=== PATIENT | male | born 1945 | race Caucasian/White ===

== ENCOUNTER 2016-05-22 12:22 | Inpatient (IN) | payer MEDICARE ==
[~2016-05-22] VITALS: Ht 175.3 cm; Wt 70.6 kg
[2016-05-22 12:28] VITALS: BP 134/64; PULSE 78; RESP 18; TEMP 97.7; O2SAT 95
[2016-05-22 12:32] VITALS: BP 149/71; PULSE 72; RESP 18; TEMP 98.4; O2SAT 96
[2016-05-22] MEDS ORDERED: ONDANSETRON HCL 4 MG/2 ML VIAL ONE (12:34)
[2016-05-22 12:38] VITALS: RESP 18; O2SAT 96
[2016-05-22] MEDS ORDERED: ONDANSETRON HCL 4 MG/2 ML VIAL IVP ONE (12:45)
[2016-05-22] MEDS ORDERED: MECLIZINE HCL 25 MG TAB PO ONE (12:45)
[2016-05-22 12:51] LABS: AUTOMATED NEUTROPHIL # 3.4 TH/MM3 (1.8-7.7); BASOPHIL # 0.1 TH/MM3 (0-0.2); BASOPHIL % 0.7 % (0.0-2.0); EOSINOPHIL # 0.1 TH/MM3 (0-0.4); EOSINOPHIL % 1.2 % (0.0-4.0); HEMATOCRIT 38.3 % (39.0-51.0); HEMO FLAGS DIFF FINAL; LYMPH % 39.8 % (9.0-44.0); LYMPHOCYTE # 2.9 TH/MM3 (1.0-4.8); MEAN CELL VOLUME 89.9 FL (80.0-100.0); MEAN CORPUSCULAR HEMOGLOBIN 30.7 PG (27.0-34.0); MEAN CORPUSCULAR HGB CONC 34.2 % (32.0-36.0); MONO % 12.4 % (0.0-8.0); NEUT % 45.9 % (16.0-70.0); PLATELET COUNT 167 TH/MM3 (150-450); RED BLOOD COUNT 4.26 MIL/MM3 (4.50-5.90); RED CELL DISTRIBUTION WIDTH 13.5 % (11.6-17.2); WHITE BLOOD COUNT 7.3 TH/MM3 (4.0-11.0)
--- NOTE | 2016-05-22 12:54 | PD ---
HPI Chief Complaint: Dizziness Time Seen by Provider: 12:47 Travel History International Travel<30 days: No Contact w/Intl Traveler<30days: No Traveled to known affect area: No History of Present Illness HPI Patient is a 70-year-old male with a history of atrial fibrillation on Xarelto and also has a pacemaker presenting with dizziness and nausea for 1 hour. He states it started abruptly. It is worse with turning his head to the left and right. He has associated nausea and dry heaving without vomiting. He states he feels things are spinning and he feels unsteady. He denies any focal neurological deficits, paresthesias, bowel or bladder dysfunction, seizure or loss of consciousness. He denies any chest pain, abdominal pain or shortness of breath. No diarrhea, constipation or urinary complaints. No history of CHF or CAD. He denies any head injury. Denies any fever, ENT/URI symptoms. His helps provide history as he is frequently vomiting. She states she's been with him the entire time symptoms have been present and she agrees, no seizure activity or loss of consciousness. No history of vertigo or CVA. PFSH Past Medical History Atrial Fibrillation: Yes ?: Not Past Surgical History Pacemaker: Yes (medtronic ) Social History Alcohol Use: No Tobacco Use: No Substance Use: No Allergies-Medications (Allergen,Severity, Reaction): Coded Allergies: Aspirin (Verified Allergy, Unknown, 05/22/16) MRI PRECAUTION (Verified Adverse Reaction, Severe, NON MRI COMPATIBLE MRI , 05/22/16) ADAPTA SR PACEMAKER MODEL 3 ADSR01/SERIAL # [id number]. NOT SCANNABLE PER WHIT AT [employer] 05/22/16 JLA Review of Systems General / Constitutional: No: Fever, Chills Eyes: No: Blurred Vision, Visual changes HENT: Positive: Vertigo, No: Headaches, Lightheadedness, Sore Throat, Congestion, Neck Pain, Earache Cardiovascular: No: Chest Pain or Discomfort, Palpitations, Tachycardia, Syncope, Edema Respiratory: No: Cough, Shortness of Breath Gastrointestinal: Positive: Nausea, Vomiting, No: Diarrhea, Abdominal Pain, Constipation Genitourinary: No: Dysuria Musculoskeletal: No: Pain Neurologic: Positive: Dizziness (positional), Coordination Problem, No: Weakness, Syncope, Focal Abnormalities, Tremor, Ataxia, Headache, Change in Mentation, Slurred Speech, Paresthesia, Incontinence, Seizures, Sensory Disturbance Physical Exam Exam Limitations: Clinical Condition (dizziness, nausea and vomiting) Narrative GENERAL: Well-developed and well-nourished adult male in mild distress, frequent dry heaves. SKIN: Warm and dry. Good turgor without tenting. HEAD: Normocephalic and atraumatic. EYES: PERRL bilaterally, 5mm. EOMI bilaterally with horizontal nystagmus to the left, worse with movement of the eyes to the left but not the right. Head impulse test and test of skew negative. No injection or icterus present. No proptosis. Lids without edema or erythema. ENT: Bilateral ear canals are non-edematous/non-erythematous without otorrhea. Bilateral TMs have intact landmarks and without distortion, perforation, air- fluid level or erythema. Buccal mucosa pink and moist. Oropharynx free of erythema, tonsillar hypertrophy, masses, swelling, asymmetry and exudates. Uvula midline and airway patent. NECK: Supple, no meningeal signs. Trachea midline, no JVD. No cervical or facial lymphadenopathy. CARDIOVASCULAR: Regular rate and rhythm without murmurs, rubs, clicks or gallops. Radial and posterior tibial pulses 2+ bilaterally. No pedal edema. Negative bilateral Homans sign. RESPIRATORY: Clear to auscultation bilaterally with symmetrical rise and fall, no distress or use of accessory muscles. GASTROINTESTINAL: Non-tender, non-distended. Normal bowel sounds all 4 quadrants. No masses or organomegaly present. MUSCULOSKELETAL: Patient freely moving all four extremities spontaneously. Extremities without clubbing, cyanosis, or edema. No obvious deformities. NEUROLOGIC: CN II-XII grossly intact. Awake and alert and oriented. Mild ataxia with finger to finger touching. Negative pronator drift. No dysdiadochokinesis. Strength 5/5 bilateral shoulder flexion, shoulder extension , shoulder abduction, shoulder adduction, elbow flexion, elbow extension. Sensation intact and strength 5/5 over radial, median, and ulnar nerve distributions bilaterally.Sensation intact L2-S2 bilaterally. Strength 5/5 in hip flexion, hip extension, knee flexion, knee extension, plantar flexion, dorsiflexion bilaterally. Bilateral biceps and patellar patellar DTRs 2+. Normal speech. PSYCHIATRIC: Appropriate mood and affect; insight and judgment normal. Data Data Last Documented VS Vital Signs Date Time Temp Pulse Resp B/P Pulse Ox O2 Delivery O2 Flow Rate FiO2 05/22/16 12:38 18 96 Room Air 05/22/16 12:38 72 05/22/16 12:32 98.4 149/71 Orders Ondansetron Inj (Zofran Inj) (05/22/16 12:34) Electrocardiogram (05/22/16 12:34) Complete Blood Count With Diff (05/22/16 12:34) Comprehensive Metabolic Panel (05/22/16 12:34) Magnesium (Mg) (05/22/16 12:34) B-Type Natriuretic Peptide (05/22/16 12:34) Ckmb (Isoenzyme) Profile (05/22/16 12:34) Troponin I (05/22/16 12:34) Act Partial Throm Time (Ptt) (05/22/16 12:34) Prothrombin Time / Inr (Pt) (05/22/16 12:34) Urinalysis - C+S If Indicated (05/22/16 12:34) Chest, Single Ap (05/22/16 12:34) Ct Brain W/O Iv Contrast(Rout) (05/22/16 12:34) Blood Glucose (05/22/16 12:34) Ecg Monitoring (05/22/16 12:34) Iv Access Insert/Monitor (05/22/16 12:34) Oximetry (05/22/16 12:34) Meclizine (Antivert) (05/22/16 12:45) Ondansetron Inj (Zofran Inj) (05/22/16 12:45) Orthostatic Vital Signs (05/22/16 12:34) Lipase (05/22/16 12:43) Lorazepam Inj (Ativan Inj) (05/22/16 13:00) Sodium Chlorid 0.9% 500 Ml Inj (Ns 500 M (05/22/16 13:00) CKMB (05/22/16 12:41) CKMB% (05/22/16 12:41) Consult Neurology (05/22/16 ) (Hub Use Only)Inp Phy Cons/Ref (05/22/16 ) Admit Order (Ed Use Only) (05/22/16 15:19) Labs Laboratory Tests Test 05/22/16 05/22/16 12:41 14:30 White Blood Count 7.3 TH/MM3 Red Blood Count 4.26 MIL/MM3 Hemoglobin 13.1 GM/DL Hematocrit 38.3 % Mean Corpuscular Volume 89.9 FL Mean Corpuscular Hemoglobin 30.7 PG Mean Corpuscular Hemoglobin 34.2 % Concent Red Cell Distribution Width 13.5 % Platelet Count 167 TH/MM3 Mean Platelet Volume 10.0 FL Neutrophils (%) (Auto) 45.9 % Lymphocytes (%) (Auto) 39.8 % Monocytes (%) (Auto) 12.4 % Eosinophils (%) (Auto) 1.2 % Basophils (%) (Auto) 0.7 % Neutrophils # (Auto) 3.4 TH/MM3 Lymphocytes # (Auto) 2.9 TH/MM3 Monocytes # (Auto) 0.9 TH/MM3 Eosinophils # (Auto) 0.1 TH/MM3 Basophils # (Auto) 0.1 TH/MM3 CBC Comment DIFF FINAL Differential Comment Prothrombin Time 11.8 SEC Prothromb Time International 1.1 RATIO Ratio Activated Partial 21.9 SEC Thromboplast Time Sodium Level 140 MEQ/L Potassium Level 3.9 MEQ/L Chloride Level 108 MEQ/L Carbon Dioxide Level 23.0 MEQ/L Anion Gap 9 MEQ/L Blood Urea Nitrogen 14 MG/DL Creatinine 1.09 MG/DL Estimat Glomerular Filtration 66 ML/MIN Rate Random Glucose 130 MG/DL Calcium Level 8.6 MG/DL Magnesium Level 1.9 MG/DL Total Bilirubin 1.7 MG/DL Aspartate Amino Transf 30 U/L (AST/SGOT) Alanine Aminotransferase 32 U/L (ALT/SGPT) Alkaline Phosphatase 56 U/L Total Creatine Kinase 218 U/L Creatine Kinase MB 3.0 NG/ML Troponin I LESS THAN 0.02 NG/ML B-Type Natriuretic Peptide 181 PG/ML Total Protein 7.1 GM/DL Albumin 4.2 GM/DL Lipase 133 U/L Urine Color YELLOW Urine Turbidity CLEAR Urine pH 6.5 Urine Specific [place] 1.013 Urine Protein NEG mg/dL Urine Glucose (UA) NEG mg/dL Urine Ketones NEG mg/dL Urine Occult Blood NEG Urine Nitrite NEG Urine Bilirubin NEG Urine Urobilinogen LESS THAN 2.0 MG/DL Urine Leukocyte Esterase NEG Urine RBC LESS THAN 1 /hpf Urine WBC LESS THAN 1 /hpf Microscopic Urinalysis Comment CULT NOT INDICATED MDM Medical Decision Making Medical Screen Exam Complete: Yes Emergency Medical Condition: Yes Interpretation(s) Laboratory Tests Test 05/22/16 05/22/16 12:41 14:30 White Blood Count 7.3 TH/MM3 (4.0-11.0) Red Blood Count 4.26 MIL/MM3 (4.50-5.90) Hemoglobin 13.1 GM/DL (13.0-17.0) Hematocrit 38.3 % (39.0-51.0) Mean Corpuscular Volume 89.9 FL (80.0-100.0) Mean Corpuscular Hemoglobin 30.7 PG (27.0-34.0) Mean Corpuscular Hemoglobin 34.2 % Concent (32.0-36.0) Red Cell Distribution Width 13.5 % (11.6-17.2) Platelet Count 167 TH/MM3 (150-450) Mean Platelet Volume 10.0 FL (7.0-11.0) Neutrophils (%) (Auto) 45.9 % (16.0-70.0) Lymphocytes (%) (Auto) 39.8 % (9.0-44.0) Monocytes (%) (Auto) 12.4 % (0.0-8.0) Eosinophils (%) (Auto) 1.2 % (0.0-4.0) Basophils (%) (Auto) 0.7 % (0.0-2.0) Neutrophils # (Auto) 3.4 TH/MM3 (1.8-7.7) Lymphocytes # (Auto) 2.9 TH/MM3 (1.0-4.8) Monocytes # (Auto) 0.9 TH/MM3 (0-0.9) Eosinophils # (Auto) 0.1 TH/MM3 (0-0.4) Basophils # (Auto) 0.1 TH/MM3 (0-0.2) CBC Comment DIFF FINAL Differential Comment Prothrombin Time 11.8 SEC (9.8-11.6) Prothromb Time International 1.1 RATIO Ratio Activated Partial 21.9 SEC Thromboplast Time (24.3-30.1) Sodium Level 140 MEQ/L (136-145) Potassium Level 3.9 MEQ/L (3.5-5.1) Chloride Level 108 MEQ/L (98-107) Carbon Dioxide Level 23.0 MEQ/L (21.0-32.0) Anion Gap 9 MEQ/L (5-15) Blood Urea Nitrogen 14 MG/DL (7-18) Creatinine 1.09 MG/DL (0.60-1.30) Estimat Glomerular Filtration 66 ML/MIN (>89) Rate Random Glucose 130 MG/DL (74-106) Calcium Level 8.6 MG/DL (8.5-10.1) Magnesium Level 1.9 MG/DL (1.5-2.5) Total Bilirubin 1.7 MG/DL (0.2-1.0) Aspartate Amino Transf 30 U/L (15-37) (AST/SGOT) Alanine Aminotransferase 32 U/L (12-78) (ALT/SGPT) Alkaline Phosphatase 56 U/L (45-117) Total Creatine Kinase 218 U/L (39-308) Creatine Kinase MB 3.0 NG/ML (0.5-3.6) Troponin I LESS THAN 0.02 NG/ML (0.02-0.05) B-Type Natriuretic Peptide 181 PG/ML (0-100) Total Protein 7.1 GM/DL (6.4-8.2) Albumin 4.2 GM/DL (3.4-5.0) Lipase 133 U/L (73-393) Urine Color YELLOW (YELLW/STRAW) Urine Turbidity CLEAR (CLEAR) Urine pH 6.5 (5.0-8.5) Urine Specific [place] 1.013 (1.002-1.035) Urine Protein NEG mg/dL (NEG-TRACE) Urine Glucose (UA) NEG mg/dL (NEG) Urine Ketones NEG mg/dL (NEG) Urine Occult Blood NEG (NEG) Urine Nitrite NEG (NEG) Urine Bilirubin NEG (NEG) Urine Urobilinogen LESS THAN 2.0 MG/DL (LESS THAN 2.0) Urine Leukocyte Esterase NEG (NEG) Urine RBC LESS THAN 1 /hpf (0-3) Urine WBC LESS THAN 1 /hpf (0-5) Microscopic Urinalysis Comment CULT NOT INDICATED Last [address] 05/22/16 1234 Signed Impressions: Service Date/Time: Sunday, May 22, 2016 12:53 - CONCLUSION: Negative noncontrast head CT. Rich Ye MD Chest X-Ray 05/22/16 1234 Signed Impressions: Service Date/Time: Sunday, May 22, 2016 13:00 - CONCLUSION: No acute cardiopulmonary disease demonstrated. Rich Ye MD Differential Diagnosis BPPV versus central vertigo versus CVA/TIA versus ACS versus vestibular neuritis Narrative Course Patient is a 70-year-old male presenting with extreme dizziness and disequilibrium for one hour. It started spontaneously. He has had continuously nausea with dry heaves since. It is worse with turning his head to the left and right. Zofran did not help his initial nausea despite 2 attempts. He was not able to handle by mouth meclizine. He was given 500 mL of saline bolus and Ativan 1mg which did help. He has some horizontal mastitis towards the left with eye movement and some ataxia with finger-nose testing. Was able to do gait testing or Paul-Hallpike secondary to his symptoms. No other complaints and exam is otherwise unremarkable. CT brain shows no acute process. EKG shows a ventricular paced rhythm ST-T changes. CBC shows H&H 13.1 /38.3, INR 1.1. Creatinine 1.09, glucose 1:30. T bili 1.7. Troponin less than 0.02. BNP 181. CK-MB 3.0, lipase 133. Given the ataxia, severity of his symptoms and sudden onset with lack of clear provocation there is concern for cerebellar ischemia. MRI/MRA was considered however patient has pacemaker, contacted [employer] and he is not able to have MRI/MRA. Decision was made to admit the patient, report was given to Dr. Hema Blackburn, neurologist who agrees and will consult. No additional treatments at this time as patient is on Xarelto and is allergic to aspirin. Report given to Dr. Murphy who accepted the admission. Diagnosis Primary Impression: Ataxia Additional Impression: Dizzinesses Admitting Information Admitting Physician Requests: Admit Condition: Stable EsvinreneeRich III May 22, 2016 12:54
[2016-05-22 13:00] LABS: APTT (PATIENT) 21.9 SEC (24.3-30.1); INTERNATIONAL NORMALIZED RATIO 1.1 RATIO; PROTHROMBIN TIME - PATIENT 11.8 SEC (9.8-11.6)
[2016-05-22] MEDS ORDERED: SODIUM CHLORID 0.9% 500 ML INJ 500 ML IV ONE (13:00)
[2016-05-22] MEDS ORDERED: LORazepam 2 MG/ML VIAL IV PUSH ONE (13:00)
--- NOTE | 2016-05-22 13:00 | RADRPT ---
EXAM DATE/TIME: 05/22/2016 12:53 [facility] COMPARISON: No previous studies available for comparison. INDICATIONS : Dizziness and nausea. RADIATION DOSE: 41.21 CTDIvol (mGy) MEDICAL HISTORY : None SURGICAL HISTORY : None. ENCOUNTER: Initial ACUITY: 1 day PAIN SCALE: 0/10 LOCATION: cranial TECHNIQUE: Multiple contiguous axial images were obtained of the head. Using automated exposure control and adj ustment of the mA and/or kV according to patient size, radiation dose was kept as low as reasonably a chievable to obtain optimal diagnostic quality images. FINDINGS: CEREBRUM: The ventricles are normal for age. No evidence of midline shift, mass lesion, hemorrhage or acute in farction. No extra-axial fluid collections are seen. POSTERIOR FOSSA: The cerebellum and brainstem are intact. The 4th ventricle is midline. The cerebellopontine angle i s unremarkable. EXTRACRANIAL: The visualized portion of the orbits is intact. SKULL: The calvaria is intact. No evidence of skull fracture. CONCLUSION: Negative noncontrast head CT. Rich Ye MD on May 22, 2016 at 12:58 Board Certified Radiologist. This report was verified electronically.
[2016-05-22 13:08] LABS: ALT (GPT) 32 U/L (12-78); ANION GAP 9 MEQ/L (5-15); AST (GOT) 30 U/L (15-37); BLOOD UREA NITROGEN 14 MG/DL (7-18); CHLORIDE 108 MEQ/L (98-107); GLOMERULAR FILTRATION RATE 66 ML/MIN (>89); MAGNESIUM 1.9 MG/DL (1.5-2.5); POTASSIUM 3.9 MEQ/L (3.5-5.1); SODIUM (NA) 140 MEQ/L (136-145)
[2016-05-22 13:12] LABS: ALKALINE PHOSPHATASE 56 U/L (45-117); CREATINE KINASE 218 U/L (39-308); TOTAL BILIRUBIN ADULT 1.7 MG/DL (0.2-1.0)
--- NOTE | 2016-05-22 13:35 | RADRPT ---
EXAM DATE/TIME: 05/22/2016 13:00 [facility] COMPARISON: No previous studies available for comparison. INDICATIONS : Short of Breath MEDICAL HISTORY : None. SURGICAL HISTORY : Pacemaker. ENCOUNTER: Initial ACUITY: 1 day PAIN SCORE: 4/10 LOCATION: Bilateral chest FINDINGS: No infiltrate, effusion or pneumothorax demonstrated. Heart size within normal limits. Thoracic aorta is mildly tortuous. There is a left subclavian transvenous pacer with a single lead. CONCLUSION: No acute cardiopulmonary disease demonstrated. Rich eY MD on May 22, 2016 at 13:32 Board Certified Radiologist. This report was verified electronically.
[2016-05-22 14:38] LABS: BLOOD, URINE NEG (NEG); COMMENT (UR) CULT NOT INDICATED; CULTURE IF INDICATED CULT NOT INDICATED; GLUCOSE,URINE NEG (NEG); KETONE, URINE NEG (NEG); NITRITE,URINE NEG (NEG); PH, URINE 6.5 (5.0-8.5); URINE COLOR YELLOW (YELLW/STRAW)
[2016-05-22] MEDS ORDERED: ENALAPRILAT 1.25 MG/ML VIAL IV PRN (15:30)
[2016-05-22] MEDS ORDERED: SODIUM CHLORIDE 0.9% FLUSH 5 ML FLUSH IVF PRN (15:30)
[2016-05-22 16:00] VITALS: BP 125/67; PULSE 87; RESP 18; O2SAT 98
[2016-05-22] MEDS ORDERED: LATA.005%O EACH EYE (16:22)
[2016-05-22] MEDS ORDERED: PENI500T PO (16:24)
[2016-05-22] MEDS ORDERED: XARE20TA PO (16:41)
[2016-05-22] MEDS ORDERED: HEPARIN SODIUM - SQ 10,000 UNITS/ML VIAL SQ SCH (17:00)
--- NOTE | 2016-05-22 17:45 | HHI.HP ---
[facility] Service [facility] Primary Care Physician No Primary Care Physician Admission Diagnosis DIZZINESS, ? CEREBELLAR CVA Diagnoses: Chief Complaint: dizziness Travel History International Travel<30 Days: No Contact w/Intl Traveler <30 Da: No Traveled to Known Affected Are: No History of Present Illness 70-year-old male with history of atrial fibrillation on Xarelto, bradycardia s/ p pacemaker, prostate cancer s/p radiation, glaucoma, HLD, presents with intractable dizziness. The patient reports approximately 1 hour prior to arrival , he was sitting in his car in a parking lot, talking on the phone, when he all of a sudden developed significant dizziness, described as the room spinning, worse with any head movement, slightly relieved by looking downward at his lap. He tried to get out of the car, almost lost his balance, could not ambulate, therefore he sat back inside the car. After about an hour of sitting in the car , he was finally able to get out of the emergency medical technician/driver's seat and into the passenger seat for his spouse to transport him to the ER. He then started having nausea and significant dry heaving but no emesis. He denies any headache, unilateral numbness/weakness, or slurred speech. Denies any chest pain, palpitations, shortness of breath, abdominal pains, or urinary complaints. Since his arrival to the ER, head CT negative, CXR unremarkable, CBC and BMP essentially unremarkable. Noted to have nystagmus on exam. He was given Ativan, Meclizine, and Zofran with significant relief, only with minimal dizziness. Review of Systems Constitutional: COMPLAINS OF: Dizziness, DENIES: Diaphoretic episodes, Fatigue , Fever, Chills, Change in appetite Endocrine: DENIES: Polydipsia, Polyuria, Polyphagia Eyes: COMPLAINS OF: Blurred vision, DENIES: Diplopia, Vision loss, Double Vision Ears, nose, mouth, throat: DENIES: Hearing loss, Throat pain, Ear Pain, Running Nose Respiratory: DENIES: Cough, Wheezing, Shortness of breath Cardiovascular: DENIES: Chest pain, Palpitations, Syncope, Dyspnea on Exertion , Lower Extremity Edema Gastrointestinal: COMPLAINS OF: Nausea, DENIES: Abdominal pain, Constipation, Diarrhea, Vomiting Genitourinary: DENIES: Urinary frequency, Urgency, Dysuria Musculoskeletal: DENIES: Back pain, Neck pain Integumentary: DENIES: Pruritus, Rash Hematologic/lymphatic: DENIES: Bruising, Lymphadenopathy Immunologic/allergic: DENIES: Eczema, Urticaria Neurologic: COMPLAINS OF: Abnormal gait, Poor Balance, DENIES: Headache, Localized weakness, Paresthesias, Seizures, Speech Problems Psychiatric: DENIES: Anxiety, Depression Past Family Social History Past Medical History atrial fibrillation on Xarelto bradycardia with HR 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 NOT SCANNABLE PER WHIT AT [facility] 05/22/16 JLA Active Ordered Medications Current Medications Medications (Trade) Dose Ordered Sig/Rosie Route Start Time Stop Time Status Last Admin (NS Flush) 2 ml BID IVF 05/22/16 21:00 (NS Flush) 2 ml UNSCH PRN IVF 05/22/16 15:30 (Vasotec Inj) 1.25 mg Q4H PRN IV 05/22/16 15:30 (Heparin Inj) 5,000 units Q12H SQ 05/22/16 17:00 Family History Mother with colon cancer and rheumatic heart disease, Father also with rheumatic heart disease, Social History Smoked tobacco from age [age], at least 1 PPD Prior heavy beer drinker, quit drinking alcohol 10 years ago Denies any illicit drug use Patient stay very active, cardio 5x/week Lives with his Physical Exam Vital Signs Vital Signs Date Time Temp Pulse Resp B/P Pulse Ox O2 Delivery O2 Flow Rate FiO2 05/22/16 16:00 87 18 125/67 98 Room Air 05/22/16 12:38 18 96 Room Air 05/22/16 12:38 72 18 96 Room Air 05/22/16 12:32 98.4 72 18 149/71 96 05/22/16 12:28 97.7 78 18 134/64 95 Physical Exam GENERAL: Well-nourished, well-developed pleasant male patient in NAD. SKIN: Warm and dry. No rash. HEAD: Normocephalic. Atraumatic. EYES: Pupils equal and round. EOMI. No scleral icterus. No injection or drainage. ENT: No nasal bleeding or discharge. Mucous membranes pink and moist. NECK: Supple. Trachea midline. CARDIOVASCULAR: Regular rate and rhythm. S1, S2 noted. No murmur appreciated. RESPIRATORY: No accessory muscle use. Clear to auscultation. Breath sounds equal bilaterally. GASTROINTESTINAL: Abdomen soft, non-tender, nondistended. Normoactive bowel sounds x4. MUSCULOSKELETAL: No obvious deformities. Extremities without clubbing, cyanosis , or edema. NEUROLOGICAL: Awake and alert. No obvious cranial nerve deficits. Motor grossly within normal limits. 5/5 muscle strength in bilateral upper and lower extremities. Normal speech. [id number] testing unremarkable. No dysdiadochokinesis. Did not attempt gait testing secondary to dizziness, risk of fall. PSYCHIATRIC: Appropriate mood and affect; insight and judgment normal. Laboratory Laboratory Tests Test 05/22/16 05/22/16 12:41 14:30 White Blood Count 7.3 Red Blood Count 4.26 Hemoglobin 13.1 Hematocrit 38.3 Mean Corpuscular Volume 89.9 Mean Corpuscular Hemoglobin 30.7 Mean Corpuscular Hemoglobin 34.2 Concent Red Cell Distribution Width 13.5 Platelet Count 167 Mean Platelet Volume 10.0 Neutrophils (%) (Auto) 45.9 Lymphocytes (%) (Auto) 39.8 Monocytes (%) (Auto) 12.4 Eosinophils (%) (Auto) 1.2 Basophils (%) (Auto) 0.7 Neutrophils # (Auto) 3.4 Lymphocytes # (Auto) 2.9 Monocytes # (Auto) 0.9 Eosinophils # (Auto) 0.1 Basophils # (Auto) 0.1 CBC Comment DIFF FINAL Differential Comment Prothrombin Time 11.8 Prothromb Time International 1.1 Ratio Activated Partial 21.9 Thromboplast Time Sodium Level 140 Potassium Level 3.9 Chloride Level 108 Carbon Dioxide Level 23.0 Anion Gap 9 Blood Urea Nitrogen 14 Creatinine 1.09 Estimat Glomerular Filtration 66 Rate Random Glucose 130 Calcium Level 8.6 Magnesium Level 1.9 Total Bilirubin 1.7 Aspartate Amino Transf 30 (AST/SGOT) Alanine Aminotransferase 32 (ALT/SGPT) Alkaline Phosphatase 56 Total Creatine Kinase 218 Creatine Kinase MB 3.0 Troponin I LESS THAN 0.02 B-Type Natriuretic Peptide 181 Total Protein 7.1 Albumin 4.2 Lipase 133 Urine Color YELLOW Urine Turbidity CLEAR Urine pH 6.5 Urine Specific [place] 1.013 Urine Protein NEG Urine Glucose (UA) NEG Urine Ketones NEG Urine Occult Blood NEG Urine Nitrite NEG Urine Bilirubin NEG Urine Urobilinogen LESS THAN 2.0 Urine Leukocyte Esterase NEG Urine RBC LESS THAN 1 Urine WBC LESS THAN 1 Microscopic Urinalysis Comment CULT NOT INDICATED Result Diagram: 05/22/16 1241 05/22/16 1241 Imaging Last Impressions Head CT 05/22/16 1234 Signed Impressions: Service Date/Time: Sunday, May 22, 2016 12:53 - CONCLUSION: Negative noncontrast head CT. Rich Ye MD Chest X-Ray 05/22/16 1234 Signed Impressions: Service Date/Time: Sunday, May 22, 2016 13:00 - CONCLUSION: No acute cardiopulmonary disease demonstrated. Rich Ye MD Assessment and Plan Problem List: (1) Dizzinesses ICD Code: R42 Status: Acute (2) Ataxia ICD Code: R27.0 Status: Acute Assessment and Plan 70-year-old male with history of atrial fibrillation on Xarelto, bradycardia s/ p pacemaker, prostate cancer s/p radiation, glaucoma, HLD, presents with intractable dizziness, unsteady gait, and dry heaving Intractable Dizziness/Ataxia/Nausea: suspect BPPV however concern for cerebellar CVA. Head CT images reviewed, unremarkable. Unable to have brain MRI secondary to pacemaker. Noted to have nystagmus on exam, given Ativan, Meclizine , and Zofran in the ED with significant relief, now only with minimal dizziness. -Check carotid U/S. -Neuro checks, NIHSS, swallow eval. PT consult. -Monitor on telemetry. -Check lipid panel, HgbA1c. -Continue meclizine and IV Zofran prn. -Consult neurology, ER discussed with Dr. Blackburn Atrial Fibrillation: chronic -continue patient's Xarelto -monitor on telemetry. Patient has a pacemaker. Will have it interrogated to ensure arrhythmia not the cause of his symptoms. DVT Prophylaxis: SQ Heparin Written by Martha Perkins, acting as scribe for Dr. Murphy on 05/22/16 at 17: 44. The documentation accurately reflects the work performed [id number] by me on 05/22/16 at 1744. Code Status Full Discussed Condition With Patient, patient's at bedside, DUNIA SALAZAR Physician Certification 2 Midnight Certification Type: Admission for Inpatient Services Order for Inpatient Services The services are ordered in accordance with Medicare regulations or non- Medicare payer requirements, as applicable. In the case of services not specified as inpatient-only, they are appropriately provided as inpatient services in accordance with the 2-midnight benchmark. Estimated LOS (days): 2 days is the estimated time the patient will need to remain in the hospital, assuming treatment plan goals are met and no additional complications. Post-Hospital Plan: Not yet determined Martha Perkins PA-C May 22, 2016 17:45 Michael Murphy MD May 22, 2016 18:48
[2016-05-22] MEDS ORDERED: ONDANSETRON HCL 4 MG/2 ML VIAL IV PUSH PRN (18:30)
[2016-05-22] MEDS ORDERED: MECLIZINE HCL 25 MG TAB PO PRN (18:30)
--- NOTE | 2016-05-22 19:23 | RADRPT ---
EXAM DATE/TIME: 05/22/2016 17:03 [place] COMPARISON: No previous studies available for comparison. INDICATIONS : Cerebrovascular accident. MEDICAL HISTORY : A-Fib. SURGICAL HISTORY : Pacemaker. ENCOUNTER: Initial ACUITY: 1 day PAIN SCORE: 0/10 LOCATION: Bilateral neck PEAK SYSTOLIC VELOCITIES (cm/sec): ICA/CCA RATIO: Right: 1.0 Left: 0.8 ICA: Right: 74 Left: 79 CCA: Right: 71 Left: 100 ECA: Right: 76 Left: 64 VERTEBRAL: Right: 42 antegrade Left: 24 antegrade Elevated flow velocities and ICA/CCA ratios have been found to correlate with increased degrees of vessel stenosis, calculated as percentage of diameter relative to a normal segment of distal ICA/CCA FINDINGS: RIGHT CAROTID: No significant stenosis is visualized. The waveforms are within normal limits. LEFT CAROTID: No significant stenosis is visualized. The waveforms are within normal limits. VERTEBRAL ARTERIES: Antegrade flow is seen in both vertebral arteries. MISCELLANEOUS: None. CONCLUSION: 1. Mild to moderate visible plaque around the carotid bifurcations. No hemodynamically significant st enosis. Vertebral artery flow antegrade bilaterally. Harjinder King MD on May 22, 2016 at 19:20 Board Certified Radiologist. This report was verified electronically.
[2016-05-22 20:40] VITALS: BP 120/69; PULSE 72; RESP 18; TEMP 97.1; O2SAT 96
[2016-05-22] MEDS ORDERED: LATANOPROST 0.005% OPHT SOLN 2.5 ML BTL EACH EYE SCH (21:00)
[2016-05-22] MEDS: RIVAROXABAN 20 MG TAB PO SCH ×2 (21:00→21:20)
[2016-05-22] MEDS: SODIUM CHLORIDE 0.9% FLUSH 5 ML FLUSH IVF SCH (21:20)
--- NOTE | 2016-05-22 22:03 | MB ---
cc: RADHA TEJEDA. PHD DATE OF CONSULTATION 05/22/16 REASON FOR CONSULTATION Vertigo, possible stroke. HISTORY OF PRESENT ILLNESS Mr. Cuadra is a 70 old man who was in his usual state of health. He was at a parking lot in a shopping center. Suddenly while talking on the phone, he experienced dizziness that he described as the room was spinning. It was worse if he moved at all. If he looked down, it got a little bit better. He had no focal deficit. No slurred speech or double vision. Symptoms have resolved at the present time. In the emergency room, it was felt that he might have some mild dysmetria. Therefore, he was admitted for further evaluation, rule out stroke. He has a pacemaker, history of atrial fibrillation, takes Xarelto. ALLERGIES ASPIRIN MEDICATIONS 1. Xarelto 20 mg daily, 2. Antivert 3. Zofran p.r.n. NEUROLOGIC EXAMINATION His blood pressure is 125/67, pulse 87, respirations 18, temperature 98 degrees. Higher cortical functions is normal. Cranial nerves are intact. The extraocular movements are normal. There is no nystagmus. No facial asymmetry. On motor exam, he has 5/5 strength of all groups. There is no drift. ____ testing at this time I do not find any significant dysmetria or dysdiadochokinesia. Reflexes are symmetric. IMAGING STUDIES CT of the brain shows no acute change present. Carotid ultrasound - mild plaquing. no significant stenosis. IMPRESSION AND RECOMMENDATION Vertigo. This may have been a peripheral source especially with the positional nature of it. I do not find any definite focality at the present time. Recommend continuing Xarelto for his atrial fibrillation, would not add any other aspirin. He is not able to have an MRI of the brain presently. We will obtain an echocardiogram. MD JADE Hudson/ /9:32 PM /9:57 PM
[2016-05-22 22:36] LABS: HDL CHOLESTEROL 75.7 MG/DL (40.0-60.0)
[2016-05-23 00:47] VITALS: BP 105/65; PULSE 74; RESP 18; TEMP 96.1; O2SAT 98
[2016-05-23 04:11] VITALS: BP 111/60; PULSE 73; RESP 18; TEMP 96.8; O2SAT 96
[2016-05-23 08:00] VITALS: BP 121/71; PULSE 86; RESP 17; TEMP 97.6; O2SAT 100
[2016-05-23] MEDS: SODIUM CHLORIDE 0.9% FLUSH 5 ML FLUSH IVF SCH (08:58)
[2016-05-23] MEDS ORDERED: RIVAROXABAN 20 MG TAB PO SCH (09:00)
[2016-05-23 09:26] LABS: HDL CHOLESTEROL 78.7 MG/DL (40.0-60.0)
[2016-05-23 10:17] VITALS: PULSE 71
--- NOTE | 2016-05-23 10:21 | HHI.DCPOC ---
Discharge Care Plan Diagnosis: (1) Ataxia (2) Dizzinesses (3) Vertigo Goals to Promote Your Health * To prevent worsening of your condition and complications * To maintain your health at the optimal level Directions to Meet Your Goals Take your medications as prescribed Follow your dietary instruction Follow activity as directed Keep your appointments as scheduled Take your immunizations and boosters as scheduled If your symptoms worsen call your PCP, if no PCP go to Urgent Care Center or Emergency Room Smoking is Dangerous to Your Health. Avoid second hand smoke Call the 24-hour hour crisis hotline for domestic abuse at Michael Murphy MD May 23, 2016 10:21
--- NOTE | 2016-05-23 10:23 | HHI.PR ---
Subjective Remarks No more dizziness. Walked the halls with no problem. Back to normal per patient. Feels comfortable going home. He has appointment with his Crime Prevention Police Officer next week. Objective Vitals Vital Signs Date Time Temp Pulse Resp B/P Pulse Ox O2 Delivery O2 Flow Rate FiO2 05/23/16 10:17 71 05/23/16 08:00 97.6 86 17 121/71 100 05/23/16 04:11 96.8 73 18 111/60 96 05/23/16 00:47 96.1 74 18 105/65 98 05/22/16 20:40 97.1 72 18 120/69 96 05/22/16 16:00 87 18 125/67 98 Room Air 05/22/16 12:38 18 96 Room Air 05/22/16 12:38 72 18 96 Room Air 05/22/16 12:32 98.4 72 18 149/71 96 05/22/16 12:28 97.7 78 18 134/64 95 I/O 05/22/16 05/22/16 05/22/16 05/23/16 05/23/16 05/23/16 07:00 15:00 23:00 07:00 15:00 23:00 Intake Total 240 ml Balance 240 ml Intake Oral 240 ml # Voids 3 Result Diagram: 05/22/16 1241 05/22/16 1241 Imaging Last Impressions Head CT 05/22/16 1234 Signed Impressions: Service Date/Time: Sunday, May 22, 2016 12:53 - CONCLUSION: Negative noncontrast head CT. Rich Ye MD Chest X-Ray 05/22/16 1234 Signed Impressions: Service Date/Time: Sunday, May 22, 2016 13:00 - CONCLUSION: No acute cardiopulmonary disease demonstrated. Rich Ye MD Carotid Artery Ultrasound 05/22/16 0000 Signed Impressions: Service Date/Time: Sunday, May 22, 2016 17:03 - CONCLUSION: 1. Mild to moderate visible plaque around the carotid bifurcations. No hemodynamically significant stenosis. Vertebral artery flow antegrade bilaterally. Harjinder King MD Objective Remarks GENERAL: This is a well-nourished, well-developed patient, in no apparent distress. CARDIOVASCULAR: Normal rate and regular rhythm without murmurs, gallops, or rubs. RESPIRATORY: Good respiratory efforts. Breath sounds equal and clear to auscultation bilaterally. GASTROINTESTINAL: Abdomen soft, non-tender, non-distended. Normal active bowel sounds MUSCULOSKELETAL: Extremities without cyanosis, or edema. NEURO: Alert & Oriented x4 to person, place, time, situation. Moves all ext x4 PSYCH: Appropriate mood and affect. A/P Problem List: (1) Dizzinesses ICD Code: R42 Status: Acute (2) Ataxia ICD Code: R27.0 Status: Acute Assessment and Plan 70-year-old male with a medical history significant for atrial fibrillation on Xarelto, bradycardia status post pacemaker who presented to the emergency room for acute onset dizziness and ataxia. The patient was admitted to rule out CVA. He was evaluated by neurology. A head CT was unremarkable. Carotid ultrasound were unremarkable. He could not obtain MRI due to pacemaker. His symptoms completely resolved and I agree with neurology this was felt to be more consistent with benign positional vertigo. 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 He is discharge in good condition. He is to remain on his regular home medications including Xarelto. No aspirin indicated at this point. Discharge home in good condition Diet: Heart healthy Activity: Regular as tolerated Follow-up: With cardiology as scheduled. May consider echocardiogram. Meds: Per med rec. No changes. Michael Murphy MD May 23, 2016 10:23
--- NOTE | 2016-05-23 10:53 | HHI.PR ---
Review/Management Diagnosis I think this was probably a vestibular vertigo such as benign positional vertigo and not TIA His sx have completely resolved at present Plan Ok from neuro standpoint to dc home can get echo as outpatient Diagnosis/Plan: Subjective Subjective Comments No acute events reported He feels back to normal with no vertigo I reviewed the history again with him--yesterday while in a parking lot had sudden onset of a vertigo feeling--everything spinning. It was worse if he moved his head and improved if he looked down. He had no other neurologic sx. Active Medications Current Medications Medications (Trade) Dose Ordered Sig/Rosie Route Start Time Stop Time Status Last Admin (NS Flush) 2 ml BID IVF 05/22/16 21:00 05/23/16 08:58 (NS Flush) 2 ml UNSCH PRN IVF 05/22/16 15:30 (Vasotec Inj) 1.25 mg Q4H PRN IV 05/22/16 15:30 (Xalatan 0.005% Opth Soln) 1 drop HS EACH EYE 05/22/16 21:00 05/22/16 21:20 (Antivert) 25 mg Q6H PRN PO 05/22/16 18:30 (Zofran Inj) 4 mg Q6HR PRN IV PUSH 05/22/16 18:30 (Xarelto) 20 mg HS PO 05/22/16 20:30 05/22/16 21:00 Allergies Allergies Coded Allergies Aspirin (Verified Allergy, Unknown, 05/22/16) MRI PRECAUTION (Verified Adverse Reaction, Severe, NON MRI COMPATIBLE MRI, ) Exam I&O / VS 05/22/16 05/22/16 05/23/16 15:00 23:00 07:00 Intake Total 240 ml Balance 240 ml Intake Oral 240 ml # Voids 3 Vital Signs Date Time Temp Pulse Resp B/P Pulse Ox O2 Delivery O2 Flow Rate FiO2 05/23/16 10:17 71 05/23/16 08:00 97.6 86 17 121/71 100 05/23/16 04:11 96.8 73 18 111/60 96 05/23/16 00:47 96.1 74 18 105/65 98 05/22/16 20:40 97.1 72 18 120/69 96 05/22/16 16:00 87 18 125/67 98 Room Air 05/22/16 12:38 18 96 Room Air 05/22/16 12:38 72 18 96 Room Air 05/22/16 12:32 98.4 72 18 149/71 96 05/22/16 12:28 97.7 78 18 134/64 95 Exam Comments alert, oriented , speech normal cn 2-12 NORMAL EOM intact with no nystagmus. MOTOR-- 5/5 BUE and BLE Cerebellar--- no dysmetria Objective Micro and Labs Laboratory Tests Test 05/22/16 05/22/16 05/23/16 12:41 14:30 08:03 White Blood Count 7.3 Red Blood Count 4.26 Hemoglobin 13.1 Hematocrit 38.3 Mean Corpuscular Volume 89.9 Mean Corpuscular Hemoglobin 30.7 Mean Corpuscular Hemoglobin 34.2 Concent Red Cell Distribution Width 13.5 Platelet Count 167 Mean Platelet Volume 10.0 Neutrophils (%) (Auto) 45.9 Lymphocytes (%) (Auto) 39.8 Monocytes (%) (Auto) 12.4 Eosinophils (%) (Auto) 1.2 Basophils (%) (Auto) 0.7 Neutrophils # (Auto) 3.4 Lymphocytes # (Auto) 2.9 Monocytes # (Auto) 0.9 Eosinophils # (Auto) 0.1 Basophils # (Auto) 0.1 CBC Comment DIFF FINAL Differential Comment Prothrombin Time 11.8 Prothromb Time International 1.1 Ratio Activated Partial 21.9 Thromboplast Time Sodium Level 140 Potassium Level 3.9 Chloride Level 108 Carbon Dioxide Level 23.0 Anion Gap 9 Blood Urea Nitrogen 14 Creatinine 1.09 Estimat Glomerular Filtration 66 Rate Random Glucose 130 Calcium Level 8.6 Magnesium Level 1.9 Total Bilirubin 1.7 Aspartate Amino Transf 30 (AST/SGOT) Alanine Aminotransferase 32 (ALT/SGPT) Alkaline Phosphatase 56 Total Creatine Kinase 218 Creatine Kinase MB 3.0 Troponin I LESS THAN 0.02 B-Type Natriuretic Peptide 181 Total Protein 7.1 Albumin 4.2 Triglycerides Level 75 59 Cholesterol Level 197 177 LDL Cholesterol 106 87 HDL Cholesterol 75.7 78.7 Cholesterol/HDL Ratio 2.60 2.24 Lipase 133 Urine Color YELLOW Urine Turbidity CLEAR Urine pH 6.5 Urine Specific [place] 1.013 Urine Protein NEG Urine Glucose (UA) NEG Urine Ketones NEG Urine Occult Blood NEG Urine Nitrite NEG Urine Bilirubin NEG Urine Urobilinogen LESS THAN 2.0 Urine Leukocyte Esterase NEG Urine RBC LESS THAN 1 Urine WBC LESS THAN 1 Microscopic Urinalysis Comment CULT NOT INDICATED Hema Blackburn. PhD May 23, 2016 10:53
[2016-05-23 13:03] LABS: HEMOGLOBIN A1a 1.2 %; HEMOGLOBIN A1b 1.3 %; HEMOGLOBIN Ao 86.9 %; HEMOGLOBIN LA1C 1.4 %; HEMOGLOBIN P3 3.3 %
--- NOTE | 2016-05-23 15:22 | EKG ---
Date Performed: 05/22/2016 Time Performed: 12:38:11 PTAGE: 70 years EKG: ELECTRONIC VENTRICULAR PACEMAKER ABNORMAL RHYTHM ECG NO PREVIOUS TRACING DOCTOR: Shawn Leonard Interpretating Date/Time 05/23/2016 15:20:27
== END 2016-05-23 11:24 | disposition home or self-care (01) | DRG 149 ==
LOC: NEPE 12:22 → NEDA 15:20 → N05A 19:02
PROVIDERS: ADMIT Family Medicine; ATTEND Family Medicine
DX: H81.10 Benign paroxysmal vertigo, unspecified ear (principal); I63.9 Cerebral infarction, unspecified; I48.2 Chronic atrial fibrillation; E78.5 Hyperlipidemia, unspecified; Z95.0 Presence of cardiac pacemaker; Z92.3 Personal history of irradiation; Z79.01 Long term (current) use of anticoagulants; H55.00 Unspecified nystagmus; H40.9 Unspecified glaucoma; Z85.46 Personal history of malignant neoplasm of prostate
CPT/HCPCS: 70450; 71010; 80053; 80061; 81001; 82550; 82552; 82948; 83036; 83690; 83735; 83880; 84484; 85025; 85610; 85730; 93005; 93880; 96374; 96375; J1644; J2060; J2405; J7040